=== PATIENT | female | born 1930 | race Caucasian/White ===

== ENCOUNTER 2017-09-21 10:12 | Outpatient (CLI) | payer MEDICARE, BC | END 2017-09-21 10:15 | LOC: POD 10:12 | PROVIDERS: ATTEND Podiatrist Public Medicine | DX: B35.1 Tinea unguium (principal); E11.42 Type 2 diabetes mellitus with diabetic polyneuropathy; L60.0 Ingrowing nail; M79.674 Pain in right toe(s); M79.675 Pain in left toe(s); M20.41 Other hammer toe(s) (acquired), right foot; M20.42 Other hammer toe(s) (acquired), left foot | CPT/HCPCS: 11721; G0463 ==

== ENCOUNTER 2017-12-21 10:40 | Outpatient (CLI) | payer MEDICARE, OTHER | END 2017-12-21 10:42 | LOC: POD 10:40 | PROVIDERS: ATTEND Podiatrist Public Medicine | DX: B35.1 Tinea unguium (principal); E11.42 Type 2 diabetes mellitus with diabetic polyneuropathy; E11.51 Type 2 diabetes mellitus with diabetic peripheral angiopathy without gangrene; L60.0 Ingrowing nail; L97.511 Non-pressure chronic ulcer of other part of right foot limited to breakdown of skin; M20.41 Other hammer toe(s) (acquired), right foot; M20.42 Other hammer toe(s) (acquired), left foot; M79.674 Pain in right toe(s); M79.675 Pain in left toe(s) | CPT/HCPCS: 11721; G0463 ==

== ENCOUNTER 2018-03-22 10:21 | Outpatient (CLI) | payer MEDICARE, OTHER | END 2018-03-22 10:22 | LOC: POD 10:21 | PROVIDERS: ATTEND Podiatrist Public Medicine | DX: B35.1 Tinea unguium (principal); E11.42 Type 2 diabetes mellitus with diabetic polyneuropathy; E11.51 Type 2 diabetes mellitus with diabetic peripheral angiopathy without gangrene; L60.0 Ingrowing nail; L97.511 Non-pressure chronic ulcer of other part of right foot limited to breakdown of skin; M20.41 Other hammer toe(s) (acquired), right foot; M20.42 Other hammer toe(s) (acquired), left foot; M79.674 Pain in right toe(s); M79.675 Pain in left toe(s) | CPT/HCPCS: 11721; G0463 ==

== ENCOUNTER 2018-06-21 10:10 | Outpatient (CLI) | payer MEDICARE, OTHER | END 2018-06-21 10:13 | LOC: POD 10:10 | PROVIDERS: ATTEND Podiatrist Public Medicine | DX: B35.1 Tinea unguium (principal); E11.42 Type 2 diabetes mellitus with diabetic polyneuropathy; E11.51 Type 2 diabetes mellitus with diabetic peripheral angiopathy without gangrene; L60.0 Ingrowing nail; L97.511 Non-pressure chronic ulcer of other part of right foot limited to breakdown of skin; M20.41 Other hammer toe(s) (acquired), right foot; M20.42 Other hammer toe(s) (acquired), left foot; M79.674 Pain in right toe(s); M79.675 Pain in left toe(s) | CPT/HCPCS: 11721; G0463 ==

== ENCOUNTER 2019-01-12 10:38 | Outpatient (CLI) | payer MEDICARE, OTHER ==
[2019-01-12 11:25] LABS: eGFR (Non-African) > 60
== END 2019-01-12 10:45 ==
LOC: LAB 10:38
PROVIDERS: ATTEND Family Medicine
DX: E11.40 Type 2 diabetes mellitus with diabetic neuropathy, unspecified (principal)
CPT/HCPCS: 36415; 80053; 80061; 82043; 83036

== ENCOUNTER 2019-07-12 14:15 | Outpatient (CLI) | payer MEDICARE, OTHER ==
[2019-07-12 14:31] LABS: eGFR (Non-African) > 60
[2019-07-13 11:03] LABS: A1C 6.5 % (<5.7)
== END 2019-07-12 14:17 ==
LOC: LABRHC 14:15
PROVIDERS: ATTEND Family Medicine
DX: I10 Essential (primary) hypertension (principal); E11.9 Type 2 diabetes mellitus without complications; Z79.4 Long term (current) use of insulin
CPT/HCPCS: 80053; 83036

== ENCOUNTER 2019-08-02 13:33 | Outpatient (CLI) | payer MEDICARE, OTHER ==
[2019-08-02 14:01] LABS: eGFR (Non-African) > 60
== END 2019-08-02 13:35 ==
LOC: LAB 13:33
PROVIDERS: ATTEND Family Medicine
DX: E87.5 Hyperkalemia (principal)
CPT/HCPCS: 36415; 80048